=== PATIENT | female | born 1965 | race Caucasian/White ===

== ENCOUNTER 2017-11-24 16:03 | Emergency (ER) | payer MEDICAID ==
[~2017-11-24 16:03] MED LIST: ALBU18HF2 IH; FLO0.4C PO; PROP10TA10 PO; SERT-128 PO; TRAM50TA2 PO
[2017-11-24] MEDS ORDERED: HYDR-569 PO (17:33)
[2017-11-24] MEDS ORDERED: CLIN150C2 PO (17:33)
[2017-11-24 17:38] VITALS: BP 139/73
== END 2017-11-24 17:39 | disposition home or self-care (01) ==
LOC: ER 16:03
DX: K04.7 Periapical abscess without sinus (principal); F32.9 Major depressive disorder, single episode, unspecified; M41.9 Scoliosis, unspecified; M79.7 Fibromyalgia; Z87.442 Personal history of urinary calculi; Z88.0 Allergy status to penicillin; Z90.710 Acquired absence of both cervix and uterus
CPT/HCPCS: 99283

== ENCOUNTER → 2018-05-09 | Outpatient (CLI) | payer MEDICAID ==
[~2018-05-09] MED LIST changes: +HYDR-3965 PO; +HYDR-569 PO
[2018-05-09 11:18] VITALS: BP 127/74
== END | disposition home or self-care (01) ==
LOC: ORTHO 11:10
PROVIDERS: ATTEND Nurse Practitioner Family
DX: S82.65XA Nondisplaced fracture of lateral malleolus of left fibula, initial encounter for closed fracture (principal); G43.909 Migraine, unspecified, not intractable, without status migrainosus; M79.7 Fibromyalgia; F32.9 Major depressive disorder, single episode, unspecified; F17.210 Nicotine dependence, cigarettes, uncomplicated; F12.90 Cannabis use, unspecified, uncomplicated; Z88.0 Allergy status to penicillin; X58.XXXA Exposure to other specified factors, initial encounter; Y93.89 Activity, other specified; Y92.89 Other specified places as the place of occurrence of the external cause; Y99.8 Other external cause status
CPT/HCPCS: 99213; A6446; A6449

== ENCOUNTER 2018-06-20 11:27 | Outpatient (CLI) | payer MEDICAID ==
[~2018-06-20 11:27] MED LIST changes: -HYDR-3965 PO
== END 2018-06-20 11:59 | disposition home or self-care (01) ==
LOC: ORTHO 11:27
PROVIDERS: ATTEND Nurse Practitioner Family
DX: S82.65XD Nondisplaced fracture of lateral malleolus of left fibula, subsequent encounter for closed fracture with routine healing (principal); F12.90 Cannabis use, unspecified, uncomplicated; F17.210 Nicotine dependence, cigarettes, uncomplicated; F32.9 Major depressive disorder, single episode, unspecified; G43.909 Migraine, unspecified, not intractable, without status migrainosus; J44.9 Chronic obstructive pulmonary disease, unspecified; Z88.0 Allergy status to penicillin; X58.XXXD Exposure to other specified factors, subsequent encounter
CPT/HCPCS: 73610; 99213

== ENCOUNTER 2018-08-01 13:38 | Outpatient (CLI) | payer MEDICAID ==
[2018-08-01 13:38] VITALS: BP 131/86
== END 2018-08-01 14:06 | disposition home or self-care (01) ==
LOC: ORTHO 13:38
PROVIDERS: ATTEND Nurse Practitioner Family
DX: S82.65XD Nondisplaced fracture of lateral malleolus of left fibula, subsequent encounter for closed fracture with routine healing (principal); S92.002D Unspecified fracture of left calcaneus, subsequent encounter for fracture with routine healing; M19.072 Primary osteoarthritis, left ankle and foot; M79.89 Other specified soft tissue disorders; F17.210 Nicotine dependence, cigarettes, uncomplicated; F12.90 Cannabis use, unspecified, uncomplicated; G43.909 Migraine, unspecified, not intractable, without status migrainosus; F32.9 Major depressive disorder, single episode, unspecified; Z88.5 Allergy status to narcotic agent; Z88.0 Allergy status to penicillin; Z91.19 Patient's noncompliance with other medical treatment and regimen; Z91.040 Latex allergy status; W01.0XXD Fall on same level from slipping, tripping and stumbling without subsequent striking against object, subsequent encounter
CPT/HCPCS: 73610; 99213

== ENCOUNTER 2019-01-19 18:14 | Emergency (ER) | payer MEDICAID ==
[~2019-01-19] VITALS: Ht 172.7 cm; Wt 99.3 kg
[~2019-01-19 18:14] MED LIST changes: +HYDR-4383 PO; -HYDR-569 PO
[2019-01-19 18:21] VITALS: BP 137/72
--- NOTE | 2019-01-19 19:23 | NUR ---
pt sittng in bed calmly speaking with her boyfriend who is sitting at bedside
[2019-01-19] MEDS ORDERED: LIDOcaine 1% 30ml preserv. free vial IJ ONE (19:40)
--- NOTE | 2019-01-19 20:02 | NUR ---
PA in room to numb finger
[2019-01-19] MEDS ORDERED: SULF1TAB49 PO (20:34)
[2019-01-19] MEDS ORDERED: HYDR-4383 PO (20:47)
== END 2019-01-19 21:01 | disposition home or self-care (01) ==
LOC: ER 18:15
DX: L02.511 Cutaneous abscess of right hand (principal); F12.90 Cannabis use, unspecified, uncomplicated; F15.90 Other stimulant use, unspecified, uncomplicated; G43.909 Migraine, unspecified, not intractable, without status migrainosus; Z90.710 Acquired absence of both cervix and uterus; Z88.0 Allergy status to penicillin; Z88.6 Allergy status to analgesic agent; Z91.040 Latex allergy status
CPT/HCPCS: 26010; 99283; J3490

== ENCOUNTER 2019-07-20 23:24 | Emergency (ER) | payer MEDICAID ==
[~2019-07-20] VITALS: Ht 170.2 cm; Wt 86.4 kg
[2019-07-20 23:29] VITALS: BP 133/80
[2019-07-20] MEDS ORDERED: proparacaine 0.5% ophthalmic drops 15ml EACHEYE ONE (23:50)
[2019-07-21] MEDS ORDERED: ciprofloxacin 0.3% 2.5ml ophthalmic solution RIGHTEYE ONE (00:10)
== END 2019-07-21 00:46 | disposition home or self-care (01) ==
LOC: ER 23:25
DX: S05.01XA Injury of conjunctiva and corneal abrasion without foreign body, right eye, initial encounter (principal); G43.909 Migraine, unspecified, not intractable, without status migrainosus; M79.7 Fibromyalgia; F32.9 Major depressive disorder, single episode, unspecified; F12.90 Cannabis use, unspecified, uncomplicated; F15.90 Other stimulant use, unspecified, uncomplicated; Z87.442 Personal history of urinary calculi; Z90.710 Acquired absence of both cervix and uterus; Z98.890 Other specified postprocedural states; Z88.0 Allergy status to penicillin; Z91.040 Latex allergy status; Z88.5 Allergy status to narcotic agent; Z88.6 Allergy status to analgesic agent; Z79.899 Other long term (current) drug therapy; W22.8XXA Striking against or struck by other objects, initial encounter; Y93.89 Activity, other specified; Y92.89 Other specified places as the place of occurrence of the external cause; Y99.8 Other external cause status
CPT/HCPCS: 99283

== ENCOUNTER 2021-04-27 20:40 | Emergency (ER) | payer MEDICAID ==
[~2021-04-27] VITALS: Ht 170.2 cm; Wt 93.3 kg
[2021-04-27 20:46] VITALS: BP 122/77
[2021-04-27] MEDS ORDERED: proparacaine 0.5% ophthalmic drops 15ml EACHEYE ONE (21:55)
[2021-04-27] MEDS ORDERED: moxifloxacin 0.5% ophthalmic drops 3ml LEFTEYE ONE (22:15)
--- NOTE | 2021-04-27 22:38 | NUR ---
EYE FLUSHED BY [employer]UNDERS PER JAN[employer] INSTRUCTIONS
== END 2021-04-27 22:47 | disposition home or self-care (01) ==
LOC: ER 20:41
DX: S05.02XA Injury of conjunctiva and corneal abrasion without foreign body, left eye, initial encounter (principal); H57.12 Ocular pain, left eye; G43.909 Migraine, unspecified, not intractable, without status migrainosus; F32.9 Major depressive disorder, single episode, unspecified; F12.90 Cannabis use, unspecified, uncomplicated; F15.90 Other stimulant use, unspecified, uncomplicated; Z87.442 Personal history of urinary calculi; Z90.710 Acquired absence of both cervix and uterus; Z98.890 Other specified postprocedural states; Z88.0 Allergy status to penicillin; Z88.5 Allergy status to narcotic agent; Z91.040 Latex allergy status; Z79.899 Other long term (current) drug therapy; X58.XXXA Exposure to other specified factors, initial encounter; Y93.89 Activity, other specified; Y92.89 Other specified places as the place of occurrence of the external cause; Y99.8 Other external cause status
CPT/HCPCS: 99283

== ENCOUNTER 2023-02-03 11:01 | Emergency (ER) | payer MEDICAID ==
[~2023-02-03] VITALS: Ht 172.7 cm; Wt 90.9 kg
[2023-02-03 11:27] VITALS: BP 111/78
[2023-02-03] MEDS ORDERED: PERM60CR19 TOP (14:50)
== END 2023-02-03 15:23 | disposition home or self-care (01) ==
LOC: ER 11:01
DX: B86 Scabies (principal); R60.9 Edema, unspecified; F17.200 Nicotine dependence, unspecified, uncomplicated; F12.10 Cannabis abuse, uncomplicated; F15.10 Other stimulant abuse, uncomplicated; G43.909 Migraine, unspecified, not intractable, without status migrainosus; F32.A Depression, unspecified; Z87.442 Personal history of urinary calculi; Z98.890 Other specified postprocedural states; Z91.040 Latex allergy status; Z88.0 Allergy status to penicillin; Z79.899 Other long term (current) drug therapy; Z88.6 Allergy status to analgesic agent; Z88.5 Allergy status to narcotic agent
CPT/HCPCS: 93971; 99284

== ENCOUNTER 2023-02-16 22:07 | Emergency (ER) | payer MEDICAID ==
[~2023-02-16] VITALS: Ht 172.7 cm; Wt 90.9 kg
[~2023-02-16 22:07] MED LIST changes: +PERM60CR19 TOP
[2023-02-16 22:14] VITALS: BP 165/69
[2023-02-16] MEDS ORDERED: ketorolac trometh inj. 60 MG/2 ML VIAL IM ONE (22:45)
[2023-02-16] MEDS ORDERED: ondansetron 4mg rapidly disintigrating tab PO ONE (22:45)
[2023-02-16] MEDS ORDERED: morphine 4 MG/ML inj SYRINge IM ONE (22:45)
[2023-02-16] MEDS ORDERED: LIDOCAINE 2%/EPI 1:100,000 inj. Multi-dose 20 ML VIAL IJ ONE (22:50)
[2023-02-16] MEDS ORDERED: bacitracin 15gm ointment TP ONE (22:50)
[2023-02-16] MEDS ORDERED: clindamycin 150mg capsule PO ONE (23:35)
[2023-02-17] MEDS ORDERED: CLIN150C2 PO (00:40)
== END 2023-02-17 01:05 | disposition home or self-care (01) ==
LOC: ER 22:07
DX: S51.811A Laceration without foreign body of right forearm, initial encounter (principal); S61.412A Laceration without foreign body of left hand, initial encounter; G43.909 Migraine, unspecified, not intractable, without status migrainosus; F32.A Depression, unspecified; F12.10 Cannabis abuse, uncomplicated; F15.10 Other stimulant abuse, uncomplicated; Z91.040 Latex allergy status; Z88.0 Allergy status to penicillin; Z79.899 Other long term (current) drug therapy; Z88.6 Allergy status to analgesic agent; Z88.5 Allergy status to narcotic agent; Z79.1 Long term (current) use of non-steroidal anti-inflammatories (NSAID); Z79.2 Long term (current) use of antibiotics; W54.0XXA Bitten by dog, initial encounter; Y93.89 Activity, other specified; Y92.89 Other specified places as the place of occurrence of the external cause; Y99.8 Other external cause status
CPT/HCPCS: 12004; 73090; 73130; 96372; 99284; J1885; J2270

== ENCOUNTER 2024-04-07 17:38 | Emergency (ER) | payer MEDICAID ==
[~2024-04-07] VITALS: Ht 172.7 cm; Wt 84.1 kg
[~2024-04-07 17:38] MED LIST changes: -PERM60CR19 TOP
[2024-04-07 19:14] LABS: BASOPHILS % (AUTO) 0.5 % (0-1); EOSINOPHILS # (AUTO) 0.2 X10'3 (0-0.9); EOSINOPHILS % (AUTO) 3.1 % (0-6); HEMATOCRIT 42.1 % (35.0-45.0); HEMOGLOBIN 14.1 g/dl (12.0-16.0); LYMPHOCYTES # (AUTO) 1.9 X10'3 (1.1-4.8); LYMPHOCYTES % (AUTO) 24.7 % (21-51); MEAN CORPUSCULAR HGB CONC 33.5 g/dL (33.0-36.5); MEAN CORPUSCULAR VOLUME 92.6 FL (78-98); MEAN PLATELET VOLUME 7.1 FL (7.4-10.4); MONOCYTES # (AUTO) 0.8 X10'3 (0-0.9); MONOCYTES % (AUTO) 10.6 % (2-12); NEUTROPHILS # (AUTO) 4.7 X10'3 (1.8-7.7); NEUTROPHILS % (AUTO) 61.1 % (42-75); PLATELET COUNT 258 X10'3 (140-440); RED BLOOD COUNT 4.54 X10'6 (4.20-5.60); RED CELL DISTRIBUTION WIDTH 13.3 % (11.5-14.5); WHITE BLOOD COUNT 7.6 X10'3 (4.5-11.0)
[2024-04-07 19:25] LABS: ALANINE AMINOTRANSFERASE 13 U/L (12-78); ALBUMIN 3.4 G/DL (3.4-5.0); ALBUMIN/GLOBULIN RATIO 0.9 (1.1-1.5); ALKALINE PHOSPHATASE 89 IU/L (46-116); ANION GAP 3 (8-16); ASPARTATE AMINO TRANSFERASE 10 U/L (10-37); BILIRUBIN,TOTAL 0.3 MG/DL (0.1-1.0); BLOOD UREA NITROGEN 13 MG/DL (7-18); BUN/CREATININE RATIO 15.7 (10.0-20.0); CALCIUM 8.8 MG/DL (8.5-10.1); CHLORIDE 104 MMOL/L (99-107); CREATININE 0.83 MG/DL (0.40-0.90); GLUCOSE 231 MG/DL (70-104); LIPASE 20 U/L (16-77); POTASSIUM 4.5 MMOL/L (3.5-5.1); SODIUM 139 MMOL/L (135-145); TOTAL CARBON DIOXIDE 32.2 MMOL/L (24-32); eCRCL 76 ML/MIN; eGFR 71 ML/MIN
[2024-04-07 19:32] LABS: BILIRUBIN,URINE NEGATIVE (Neg); CLARITY,URINE CLOUDY (Clear); COLOR,URINE YELLOW (Yellow); GLUCOSE, URINE >=1000 mg/dl (Neg); KETONES,URINE NEGATIVE (Neg); LEUKOCYTE ESTERASE ,URINE SMALL (Neg); NITRITES, URINE POSITIVE (Neg); OCCULT BLOOD,URINE MODERATE (Neg); PROTEIN,URINE NEGATIVE (Neg); URINE HCG NEGATIVE (NEG); UROBILINOGEN,URINE 0.2 E.U/dL (0.2-1.0)
[2024-04-07 19:33] LABS: UA COLLECTION TYPE CLN CATCH MIDSTREAM
[2024-04-07 19:40] LABS: RBC,URINE 20-50 /HPF (0-2); WBC,URINE 50-100 /HPF (0-4)
[2024-04-07 19:41] LABS: AMORPHOUS URATES 2+; BACTERIA,URINE 3+ /HPF (Neg); MUCUS STRANDS FEW /LPF (Neg); SQUAMOUS EPITHELIAL CELL,UR FEW /LPF (FEW); TRANSITIONAL EPI CELLS,URINE FEW /HPF
[2024-04-07 21:08] LABS: BILIRUBIN,URINE NEGATIVE (Neg); CLARITY,URINE CLOUDY (Clear); COLOR,URINE STRAW (Yellow); GLUCOSE, URINE 500 mg/dl (Neg); KETONES,URINE NEGATIVE (Neg); LEUKOCYTE ESTERASE ,URINE MODERATE (Neg); NITRITES, URINE POSITIVE (Neg); OCCULT BLOOD,URINE SMALL (Neg); PROTEIN,URINE NEGATIVE (Neg); UROBILINOGEN,URINE 0.2 E.U/dL (0.2-1.0)
[2024-04-07 21:21] LABS: UA COLLECTION TYPE STRAIGHT CATH
[2024-04-07 21:23] LABS: SQUAMOUS EPITHELIAL CELL,UR FEW /LPF (FEW)
[2024-04-07 21:24] LABS: BACTERIA,URINE 3+ /HPF (Neg); RBC,URINE 20-50 /HPF (0-2); WBC,URINE 30-50 /HPF (0-4)
[2024-04-07] MEDS: HYDROcodone/acetaminophen 5mg/325mg tablet PO ONE (22:21)
[2024-04-07] MEDS: CefTRIAXone 1000mg IM Kit (w/lidocaine diluent) IM ONE (22:22)
[2024-04-07 22:37] VITALS: BP 133/67; PULSE 76; RESP 14; TEMP 97; O2SAT 97
== END 2024-04-07 22:38 | disposition home or self-care (01) ==
LOC: ER 17:38
DX: N20.0 Calculus of kidney (principal); G43.909 Migraine, unspecified, not intractable, without status migrainosus; F12.90 Cannabis use, unspecified, uncomplicated; F15.90 Other stimulant use, unspecified, uncomplicated; Z91.040 Latex allergy status; Z88.0 Allergy status to penicillin; Z88.6 Allergy status to analgesic agent; Z79.899 Other long term (current) drug therapy
CPT/HCPCS: 36415; 74176; 80053; 81001; 81025; 83690; 85025; 87077; 87088; 87186; 96372; 99285; J0696; C1758

== ENCOUNTER 2024-08-02 17:44 | Emergency (ER) | payer MEDICAID ==
[~2024-08-02] VITALS: Ht 172.7 cm; Wt 104.1 kg
[2024-08-02 17:49] VITALS: TEMP 98.1
[2024-08-02 18:20] LABS: BILIRUBIN,URINE NEGATIVE (Neg); CLARITY,URINE SLIGHTLY CLOUDY (Clear); COLOR,URINE YELLOW (Yellow); GLUCOSE, URINE 250 mg/dl (Neg); KETONES,URINE NEGATIVE (Neg); LEUKOCYTE ESTERASE ,URINE SMALL (Neg); NITRITES, URINE POSITIVE (Neg); OCCULT BLOOD,URINE TRACE-INTACT (Neg); PROTEIN,URINE TRACE mg/dl (Neg); UROBILINOGEN,URINE 0.2 E.U/dL (0.2-1.0)
[2024-08-02 18:26] LABS: URINE HCG NEGATIVE (NEG)
[2024-08-02 18:28] LABS: UA COLLECTION TYPE CLN CATCH MIDSTREAM
[2024-08-02 18:29] LABS: BACTERIA,URINE 2+ /HPF (Neg); MUCUS STRANDS FEW /LPF (Neg); SQUAMOUS EPITHELIAL CELL,UR MODERATE /LPF (FEW); WBC,URINE 50-100 /HPF (0-4)
[2024-08-02 18:30] LABS: CAL OXALATE CRYSTALS 4+ /HPF (NEGATIVE)
[2024-08-02 19:37] LABS: BASOPHILS % (AUTO) 0.6 % (0-1); EOSINOPHILS # (AUTO) 0.2 X10'3 (0-0.9); EOSINOPHILS % (AUTO) 2.6 % (0-6); HEMATOCRIT 42.1 % (35.0-45.0); HEMOGLOBIN 14.3 g/dl (12.0-16.0); LYMPHOCYTES # (AUTO) 1.4 X10'3 (1.1-4.8); LYMPHOCYTES % (AUTO) 21.4 % (21-51); MEAN CORPUSCULAR HEMOGLOBIN 31.3 PG (27.0-31.0); MEAN CORPUSCULAR HGB CONC 33.9 g/dL (33.0-36.5); MEAN CORPUSCULAR VOLUME 92.3 FL (78-98); MEAN PLATELET VOLUME 7.2 FL (7.4-10.4); MONOCYTES # (AUTO) 0.7 X10'3 (0-0.9); NEUTROPHILS # (AUTO) 4.3 X10'3 (1.8-7.7); NEUTROPHILS % (AUTO) 64.4 % (42-75); PLATELET COUNT 248 X10'3 (140-440); RED BLOOD COUNT 4.57 X10'6 (4.20-5.60); RED CELL DISTRIBUTION WIDTH 13.6 % (11.5-14.5); WHITE BLOOD COUNT 6.7 X10'3 (4.5-11.0)
[2024-08-02 19:48] LABS: ALANINE AMINOTRANSFERASE 16 U/L (12-78); ALBUMIN 3.1 G/DL (3.4-5.0); ANION GAP 7 (8-16); ASPARTATE AMINO TRANSFERASE 9 U/L (10-37); BLOOD UREA NITROGEN 13 MG/DL (7-18); BUN/CREATININE RATIO 15.1 (10.0-20.0); CALCIUM 8.5 MG/DL (8.5-10.1); CHLORIDE 105 MMOL/L (99-107); CREATININE 0.86 MG/DL (0.40-0.90); GLUCOSE 219 MG/DL (70-104); LIPASE 19 U/L (16-77); POTASSIUM 4.1 MMOL/L (3.5-5.1); SODIUM 142 MMOL/L (135-145); TOTAL CARBON DIOXIDE 29.7 MMOL/L (24-32); eCRCL 73 ML/MIN; eGFR 68 ML/MIN
[2024-08-02 20:07] LABS: BILIRUBIN,TOTAL 0.2 MG/DL (0.1-1.0); TOTAL PROTEIN 6.3 G/DL (6.4-8.2)
[2024-08-02 20:12] LABS: ALKALINE PHOSPHATASE 82 IU/L (46-116)
[2024-08-02] MEDS ORDERED: CEPH-585 PO (20:25)
[2024-08-02] MEDS: CefTRIAXone 1000mg IM Kit (w/lidocaine diluent) IM ONE (20:30)
[2024-08-02 20:33] VITALS: BP 146/69; PULSE 66; RESP 16; O2SAT 98
== END 2024-08-02 20:36 | disposition home or self-care (01) ==
LOC: ER 17:45
DX: N10 Acute pyelonephritis (principal); F12.90 Cannabis use, unspecified, uncomplicated; F15.90 Other stimulant use, unspecified, uncomplicated; M79.7 Fibromyalgia; F32.A Depression, unspecified; G43.909 Migraine, unspecified, not intractable, without status migrainosus; Z88.0 Allergy status to penicillin; Z88.8 Allergy status to other drugs, medicaments and biological substances; Z91.040 Latex allergy status; Z79.899 Other long term (current) drug therapy; Z79.891 Long term (current) use of opiate analgesic; Z90.710 Acquired absence of both cervix and uterus; Z98.890 Other specified postprocedural states; Z87.442 Personal history of urinary calculi
CPT/HCPCS: 36415; 80053; 81001; 81025; 83690; 85025; 87077; 87088; 87186; 96372; 99283; J0696

== ENCOUNTER 2024-08-05 21:31 | Emergency (ER) | payer MEDICAID ==
[~2024-08-05] VITALS: Ht 172.7 cm; Wt 104.9 kg
[~2024-08-05 21:31] MED LIST changes: +CEPH-585 PO
[2024-08-05] MEDS ORDERED: LEVO-65 PO (22:42)
[2024-08-05] MEDS ORDERED: levoFLOXACIN 750MG TABLET PO ONE (22:45)
[2024-08-05 23:02] LABS: BILIRUBIN,URINE NEGATIVE (Neg); CLARITY,URINE CLOUDY (Clear); COLOR,URINE YELLOW (Yellow); GLUCOSE, URINE 500 mg/dl (Neg); KETONES,URINE NEGATIVE (Neg); LEUKOCYTE ESTERASE ,URINE NEGATIVE (Neg); NITRITES, URINE NEGATIVE (Neg); OCCULT BLOOD,URINE NEGATIVE (Neg); PROTEIN,URINE NEGATIVE (Neg); UROBILINOGEN,URINE 0.2 E.U/dL (0.2-1.0)
[2024-08-05 23:05] LABS: UA COLLECTION TYPE CLN CATCH MIDSTREAM
[2024-08-05] MEDS ORDERED: SULF1TAB49 PO (23:07)
[2024-08-05 23:11] LABS: BACTERIA,URINE 2+ /HPF (Neg)
[2024-08-05 23:12] LABS: CAL OXALATE CRYSTALS 4+ /HPF (NEGATIVE); MUCUS STRANDS NONE SEEN /LPF (Neg); SQUAMOUS EPITHELIAL CELL,UR MANY /LPF (FEW)
[2024-08-05 23:16] VITALS: BP 134/76; PULSE 70; RESP 18; TEMP 99.2; O2SAT 98
[2024-08-05 23:16] LABS: YEAST FEW /HPF (NEGATIVE)
== END 2024-08-05 23:17 | disposition home or self-care (01) ==
LOC: ER 21:31
DX: N39.0 Urinary tract infection, site not specified (principal); G43.909 Migraine, unspecified, not intractable, without status migrainosus; F32.A Depression, unspecified; F12.90 Cannabis use, unspecified, uncomplicated; F15.90 Other stimulant use, unspecified, uncomplicated; Z91.040 Latex allergy status; Z88.0 Allergy status to penicillin; Z88.6 Allergy status to analgesic agent; Z88.5 Allergy status to narcotic agent; Z79.2 Long term (current) use of antibiotics; Z79.899 Other long term (current) drug therapy
CPT/HCPCS: 81001; 99283